=== PATIENT | female | born 1965 | race Caucasian/White ===

== ENCOUNTER → 2017-05-27 | Outpatient (CLI) | payer OTHER | LOC: CIMAGING 16:42 | PROVIDERS: ATTEND Family Medicine | DX: N92.1 Excessive and frequent menstruation with irregular cycle (principal); N92.6 Irregular menstruation, unspecified; R53.83 Other fatigue; R93.8 Abnormal findings on diagnostic imaging of other specified body structures | CPT/HCPCS: 76856-PO ==

== ENCOUNTER → 2017-07-07 | Outpatient (CLI) | payer OTHER | LOC: CIMAGING 09:43 | PROVIDERS: ATTEND Family Medicine | DX: Z12.31 Encounter for screening mammogram for malignant neoplasm of breast (principal) | CPT/HCPCS: G0202 ==

== ENCOUNTER → 2017-07-14 | Outpatient (CLI) | payer OTHER | LOC: BRMIMAGING 08:54 | PROVIDERS: ATTEND Family Medicine | DX: R92.8 Other abnormal and inconclusive findings on diagnostic imaging of breast (principal) | CPT/HCPCS: 76641-PO; G0206 ==

== ENCOUNTER → 2018-04-18 | Outpatient (CLI) | payer OTHER | LOC: CIMAGING 13:50 | PROVIDERS: ATTEND Family Medicine | DX: M25.761 Osteophyte, right knee (principal); M25.461 Effusion, right knee | CPT/HCPCS: 73562-PO ==

== ENCOUNTER → 2018-07-28 | Outpatient (CLI) | payer OTHER | LOC: FIMAGING 15:50 | PROVIDERS: ATTEND Family Medicine | DX: Z12.31 Encounter for screening mammogram for malignant neoplasm of breast (principal) ==